=== PATIENT | male | born 1965 | race African-American/Black ===

== ENCOUNTER 2021-04-06 00:51 | Emergency (ER) | payer OTHER ==
[~2021-04-06] VITALS: Ht 175.3 cm; Wt 102.3 kg
[2021-04-06] MEDS ORDERED: NITROGLYCERIN SUBLINGUAL 0.4 MG BOTTLE OF 25. SL ONE (01:02)
[2021-04-06] MEDS ORDERED: NITROGLYCERIN SUBLINGUAL 0.4 MG BOTTLE OF 25. SL PRN (01:15)
[2021-04-06 01:18] LABS: BASO % 1 % (0-3); EOS # 0.2 x10^3/uL (0.0-0.7); EOS % 3 % (0-3); HEMATOCRIT 38.1 % (39.0-53.0); HEMOGLOBIN 11.8 g/dL (13.0-17.5); LYMPH # 2.8 x10^3/uL (1.0-4.8); LYMPH % 38 % (24-48); MEAN CORPUSCULAR HEMOGLOBIN 28 pg (25-35); MEAN CORPUSCULAR HGB CONC 31 g/dL (31-37); MEAN CORPUSCULAR VOLUME 90 fL (79-100); MONO # 0.8 x10^3/uL (0.0-1.1); MONO % 11 % (0-9); NEUT # 3.5 x10^3/uL (1.8-7.7); NEUT % 48 % (31-73); PLATELET COUNT 324 x10^3/uL (140-400); RED BLOOD COUNT 4.22 x10^6/uL (4.30-5.70); RED CELL DISTRIBUTION WIDTH 12.1 % (11.5-14.5); WHITE BLOOD COUNT 7.3 x10^3/uL (4.0-11.0)
[2021-04-06 01:25] LABS: CALCIUM 8.6 mg/dL (8.5-10.1); CREATININE 1.1 mg/dL (0.7-1.3); POTASSIUM 4.6 mmol/L (3.5-5.1)
[2021-04-06 01:31] LABS: ALBUMIN 3.8 g/dL (3.4-5.0); ALBUMIN/GLOBULIN RATIO 1.1 (1.0-1.7); TOTAL BILIRUBIN 1.4 mg/dL (0.2-1.0); TOTAL PROTEIN 7.4 g/dL (6.4-8.2)
[2021-04-06] MEDS ORDERED: CONTRAST GIVEN. MC PRN (01:45)
--- NOTE | 2021-04-06 01:52 | RAD ---
CTA Chest with contrast: Clinical History: Reason: chest pain, sob, recent surgery. High risk for PE.OMNI 350, 100ML / Spl. In structions: / History: Shortness of breath. Axial helical images of the chest were obtained after the administration of 100 cc of IV Isovue-370 a nd timed appropriately for a pulmonary arterial study. Conventional axial reconstruction was perform ed in addition to coronal, sagittal and bilateral oblique MIP (maximum intensity projection). This s tudy was ordered to detect possible pulmonary embolism. There are no filling defects to suggest pulmonary embolism. There is gynecomastia. The lungs and pleural margins are clear. There is no mediastinal or hilar lymphadenopathy. The thoracic aorta appears normal. Impression: 1. No evidence of pulmonary embolism. 2. No significant findings. PQRS Compliance Statement: One or more of the following individualized dose reduction techniques were utilized for this examinat ion: 1. Automated exposure control 2. Adjustment of the mA and/or kV according to patient size 3. Use of iterative reconstruction technique Electronically signed by: Calvin Sloan III, MD (04/06/2021 1:50 AM) [facility]
[2021-04-06] MEDS ORDERED: IOHEXOL 350 MG/ML 100 ML VIAL. IV ONE (02:00)
[2021-04-06] MEDS ORDERED: APIXABAN 5 MG TABLET. PO SCH (03:00)
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
--- NOTE | 2021-04-06 04:05 | RAD ---
Left Lower Extremity Venous Doppler Ultrasound History: Reason: leg swelling, PE, eval for DVT / Spl. Instructions: / History: Comparison: None Procedure: Color flow, duplex, spectral analysis and 2D images are obtained with and without compress ion in the area of the common femoral vein, superficial femoral vein - femoral vein junction, main fe moral vein (superficial femoral vein) and popliteal vein. Veins of the proximal calf are also imaged. Findings: There is normal duplex flow, color flow and compressibility of all visualized vein segments. No evide nce of deep venous thrombus is present. There is a 3.8 x 2.1 cm Pascal cyst. Impression: No evidence of DVT. Electronically signed by: Calvin Sloan III, MD (04/06/2021 4:03 AM) [facility]
[2021-04-06 04:32] VITALS: BP 155/76
[2021-04-06] MEDS ORDERED: APIX5TAB PO (04:33)
--- NOTE | 2021-04-06 07:26 | EKG ---
[facility] [address] [place] [address] Test Date: 2021-04-06 Test Time: 00:56:24 Pat Name: MIKAL BRUCE Department: Room: Gender: M Enterprise Engineer: : 1965 Requested By: ELICEO EVERETT Order Number: [id number] Reading MD: Chino Zuleta MD Measurements Intervals [place] Rate: 98 P: 44 [place]: 172 QRS: 31 QRSD: 78 T: 66 QT: 328 QTc: 421 Interpretive Statements SINUS RHYTHM Electronically Signed On 04-10-2021 8:41:29 SUPERVISING ARCHITECT by Chino Zuleta MD
== END 2021-04-06 04:50 | disposition home or self-care (01) ==
LOC: ER 00:51
DX: I26.99 Other pulmonary embolism without acute cor pulmonale (principal); R07.89 Other chest pain; R06.02 Shortness of breath; I83.92 Asymptomatic varicose veins of left lower extremity
CPT/HCPCS: 36415; 71275; 80053; 83880; 84484; 85025; 93005; 93971; 99285; Q9967